=== PATIENT | male | born 1955 | race Caucasian/White ===

== ENCOUNTER 2018-09-22 13:25 | Inpatient (IN) | payer OTHER ==
[2018-09-22 15:40] LABS: BASO # 0.1 10^3/uL (0.0-0.2); BASO % 0.5 % (0.0-1.0); EOS # 0.1 10^3/uL (0.0-0.50); EOS % 1.2 % (0.0-3.0); HEMATOCRIT 48.5 % (42.0-52.0); HEMOGLOBIN 16.5 g/dl (13.5-17.5); IMMATURE GRANULOCYTE % 0.3 % (0-3.0); LYMPH # 2.5 10^3/uL (1.5-4.5); LYMPH % 25.9 % (24.0-44.0); MEAN CORPUSCULAR HEMOGLOBIN 30.2 pg (27.0-33.0); MEAN CORPUSCULAR VOLUME 88.8 fl (80.0-96.0); MONO # 0.9 10^3/uL (0.0-0.8); MONO % 9.3 % (0.0-5.0); NEUTROPHILS # 5.9 10^3/uL (1.8-7.7); NEUTROPHILS % 62.8 % (36.0-66.0); PLATELET COUNT, AUTOMATED 314 10^3/uL (150-450); RED BLOOD COUNT 5.46 10^6/uL (4.30-6.10); RED CELL DISTRIBUTION WIDTH 13.4 % (11.5-14.5); WHITE BLOOD COUNT 9.5 10^3/uL (4.0-10.0)
[2018-09-22] MEDS: MORPHINE 4 MG/ML 1ML VIAL/SYRINGE (J2270) IV ×2 (15:46→18:13)
[2018-09-22 16:00] LABS: ANION GAP 8 MEQ/L (8-16); BLOOD UREA NITROGEN 12 MG/DL (7-18); C REACTIVE PROTEIN QUANTITATIV 0.72 MG/DL (0.00-0.30); CARBON DIOXIDE LEVEL 29 MEQ/L (21-32); CHLORIDE LEVEL 99 MEQ/L (98-107); CREATININE FOR GFR 0.94 MG/DL (0.70-1.30); GLOMERULAR FILTRATION RATE > 60.0 (>49); GLUCOSE, FASTING 92 MG/DL (70-100); POTASSIUM SERUM 4.6 MEQ/L (3.5-5.1); SODIUM LEVEL 136 MEQ/L (136-145)
[2018-09-22 16:03] LABS: LACTIC ACID SEPSIS PROTOCOL 0.8 MMOL/L (0.4-2.0)
[2018-09-22 16:29] LABS: ERYTHROCYTE SEDIMENTATION RATE 3 mm/hr (0-20)
[2018-09-22 20:03] LABS: PROTHROMBIN TIME 13.3 SECONDS (12.1-14.4)
[2018-09-22 20:04] LABS: PARTIAL THROMBOPLASTIN TIME 42.8 SECONDS (25.4-37.6)
[2018-09-22] MEDS: HEPARIN SOD (PORCINE) 5000 UNITS/ML VIAL IV (20:14)
[2018-09-22] MEDS: HEPARIN DRIP 25,000 UNITS in APPROPRIATE DILUENT 1 EA IV (20:16)
[2018-09-22] MEDS: PERCOCET 5MG/325MG TAB PO (23:16)
[2018-09-23 03:26] LABS: PARTIAL THROMBOPLASTIN TIME 149.8 SECONDS (25.4-37.6)
[2018-09-23] MEDS ORDERED: ALBUTEROL 90 MCG/ACT 8GM HFA INHALER INH (03:45)
[2018-09-23] MEDS: PERCOCET 5MG/325MG TAB PO ×5 (04:34→20:50)
[2018-09-23] MEDS: HEPARIN DRIP 25,000 UNITS in APPROPRIATE DILUENT 1 EA IV ×2 (04:41→23:11)
[2018-09-23 04:54] LABS: HEMATOCRIT 45.5 % (42.0-52.0); HEMOGLOBIN 15.3 g/dl (13.5-17.5); MEAN CORPUSCULAR HEMOGLOBIN 30.1 pg (27.0-33.0); MEAN CORPUSCULAR HGB CONC 33.6 g/dl (32.0-36.5); MEAN CORPUSCULAR VOLUME 89.4 fl (80.0-96.0); PLATELET COUNT, AUTOMATED 266 10^3/uL (150-450); RED BLOOD COUNT 5.09 10^6/uL (4.30-6.10); RED CELL DISTRIBUTION WIDTH 13.2 % (11.5-14.5)
[2018-09-23] MEDS ORDERED: HEPARIN 1,000 UNITS/ML 10ML VIAL (FOR RADIOLOGY& DIALYSIS ONLY) As Ordered (10:21)
[2018-09-23] MEDS ORDERED: fentaNYL 100 MCG/2 ML INJECTION (J3010) As Ordered (10:21)
[2018-09-23] MEDS ORDERED: MIDAZOLAM INJ 2 MG/2 ML VIAL (J2250) As Ordered (10:21)
[2018-09-23] MEDS ORDERED: ISOVUE-300 61% 50ML VIAL (Q9967) As Ordered (10:22)
[2018-09-23] MEDS ORDERED: LIDOCAINE 2% MDV 20 ML VIAL As Ordered (10:45)
[2018-09-23] MEDS: NICOTINE 21MG/24HR 1 EA TRANSDERMAL TD (17:55)
[2018-09-23 18:17] LABS: PARTIAL THROMBOPLASTIN TIME 55.7 SECONDS (25.4-37.6)
[2018-09-23] MEDS: HEPARIN SOD (PORCINE) 5000 UNITS/ML VIAL IV (18:53)
[2018-09-24] MEDS: PERCOCET 5MG/325MG TAB PO ×4 (00:59→20:17)
[2018-09-24 01:21] LABS: PARTIAL THROMBOPLASTIN TIME 114.4 SECONDS (25.4-37.6)
[2018-09-24] MEDS ORDERED: MIDAZOLAM INJ 2 MG/2 ML VIAL (J2250) As Ordered (07:08)
[2018-09-24] MEDS ORDERED: fentaNYL 250 MCG/5 ML INJECTION (J3010) As Ordered (07:08)
[2018-09-24] MEDS ORDERED: LIDOCAINE 2% INJ 100 MG/5 ML SDV (FOR ANES.) As Ordered (07:08)
[2018-09-24] MEDS ORDERED: ONDANSETRON 4MG/2ML VIAL (J2405) As Ordered (07:08)
[2018-09-24] MEDS ORDERED: PROPOFOL 200 MG/20 ML VIAL As Ordered (07:08)
[2018-09-24] MEDS ORDERED: LIDOCAINE 1% SDV INJ 30 ML VIAL As Ordered (08:42)
[2018-09-24] MEDS ORDERED: BUPIVACAINE HCL 0.5% 30 ML VIAL As Ordered (08:43)
[2018-09-24 08:45] LABS: PARTIAL THROMBOPLASTIN TIME 71.2 SECONDS (25.4-37.6)
[2018-09-24] MEDS: ceFAZolin 2 GM/D5W 50 ML IV BAG (J0690 PER 500MG) As Ordered (08:48)
[2018-09-24] MEDS ORDERED: HEPARIN SOD (PORCINE) 5000 UNITS/ML VIAL As Ordered ×2 (09:15)
[2018-09-24] MEDS: HEPARIN SOD (PORCINE) 5000 UNITS/ML VIAL As Ordered (09:30)
[2018-09-24] MEDS: THROMBIN SOLN 20,000 UNITS KIT As Ordered (10:01)
[2018-09-24] MEDS: LR 1,000 ML IV (10:45)
[2018-09-24] MEDS ORDERED: ONDANSETRON 4MG/2ML VIAL (J2405) IV (11:15)
[2018-09-24] MEDS ORDERED: fentaNYL 100 MCG/2 ML INJECTION (J3010) IV (11:15)
[2018-09-24] MEDS ORDERED: NORCO, ANEXSIA 5/325MG TABLET (HYDROcodone/ACETAMINOPHEN) PO (11:15)
[2018-09-24 16:32] LABS: PARTIAL THROMBOPLASTIN TIME 148.5 SECONDS (25.4-37.6)
[2018-09-24] MEDS: HEPARIN DRIP 25,000 UNITS in APPROPRIATE DILUENT 1 EA IV (18:17)
[2018-09-24] MEDS: NICOTINE 21MG/24HR 1 EA TRANSDERMAL TD (20:00)
[2018-09-24] MEDS ORDERED: SENNA 8.6 MG TAB (SENOKOT) PO (20:00)
[2018-09-24] MEDS: MOM 30ML SUSPENSION UDC PO (20:00)
[2018-09-24 20:03] LABS: CPK CREATINE PHOSPHOKINASE 48 U/L (39-308); MB/CK RELATIVE INDEX 2.29 (< OR =4); TROPONIN I < 0.02 NG/ML (< 0.10)
[2018-09-24] MEDS: DOCUSATE SODIUM 100 MG CAP PO (20:16)
[2018-09-25 00:32] LABS: INR 1.01; PROTHROMBIN TIME 13.4 SECONDS (12.1-14.4)
[2018-09-25 00:33] LABS: PARTIAL THROMBOPLASTIN TIME 43.5 SECONDS (25.4-37.6)
[2018-09-25] MEDS: HEPARIN SOD (PORCINE) 5000 UNITS/ML VIAL IV (01:07)
[2018-09-25] MEDS: PERCOCET 5MG/325MG TAB PO ×5 (01:18→20:12)
[2018-09-25 01:42] LABS: CPK CREATINE PHOSPHOKINASE 43 U/L (39-308); MB/CK RELATIVE INDEX 2.79 (< OR =4); TROPONIN I < 0.02 NG/ML (< 0.10)
[2018-09-25 06:56] LABS: INR 0.99; PROTHROMBIN TIME 13.2 SECONDS (12.1-14.4)
[2018-09-25 06:57] LABS: PARTIAL THROMBOPLASTIN TIME 80.9 SECONDS (25.4-37.6)
[2018-09-25 07:19] LABS: CK-MB VALUE MASS < 1.0 NG/ML (<3.6); CPK CREATINE PHOSPHOKINASE 50 U/L (39-308); TROPONIN I < 0.02 NG/ML (< 0.10)
[2018-09-25] MEDS: HEPARIN DRIP 25,000 UNITS in APPROPRIATE DILUENT 1 EA IV (07:28)
[2018-09-25] MEDS: NICOTINE 21MG/24HR 1 EA TRANSDERMAL TD (07:51)
[2018-09-25] MEDS: DOCUSATE SODIUM 100 MG CAP PO ×3 (08:07→20:11)
[2018-09-25] MEDS: MOM 30ML SUSPENSION UDC PO (12:47)
[2018-09-25] MEDS: BISACODYL 10 MG SUPP PR (12:48)
[2018-09-25 13:59] LABS: INR 0.98; PROTHROMBIN TIME 13.1 SECONDS (12.1-14.4)
[2018-09-25 14:01] LABS: PARTIAL THROMBOPLASTIN TIME 64.5 SECONDS (25.4-37.6)
[2018-09-26] MEDS: PERCOCET 5MG/325MG TAB PO ×4 (00:20→12:59)
[2018-09-26 05:53] LABS: PARTIAL THROMBOPLASTIN TIME 72.5 SECONDS (25.4-37.6)
[2018-09-26] MEDS: NICOTINE 21MG/24HR 1 EA TRANSDERMAL TD (08:35)
[2018-09-26] MEDS: DOCUSATE SODIUM 100 MG CAP PO (08:37)
== END 2018-09-26 14:45 | disposition home or self-care (01) | DRG 254 ==
LOC: M PCU 09-23 01:57 → M MSPAV 09-24 13:04 → M ED 13:25 → M ED INP 22:05
PROC: 047N3ZZ Dilation of Left Popliteal Artery, Percutaneous Approach (ICD-10-PCS; principal; 2018-09-24 08:39)
PROC: 047L3ZZ Dilation of Left Femoral Artery, Percutaneous Approach (ICD-10-PCS; 2018-09-24 08:39)
PROC: 047J3ZZ Dilation of Left External Iliac Artery, Percutaneous Approach (ICD-10-PCS; 2018-09-24 08:39)
PROC: B41DYZZ Fluoroscopy of Aorta and Bilateral Lower Extremity Arteries using Other Contrast (ICD-10-PCS; 2018-09-24 08:39)
DX: I70.212 Atherosclerosis of native arteries of extremities with intermittent claudication, left leg (principal); F17.210 Nicotine dependence, cigarettes, uncomplicated; I77.1 Stricture of artery

== ENCOUNTER → 2018-12-12 | Outpatient (CLI) | payer OTHER ==
[~2018-12-12] MED LIST: AUGM875T28 PO; LIPI20TA PO; OXYC1TAB23 PO; PLAV1TAB2 PO
[2018-12-12 15:15] LABS: BASO % 0.3 % (0.0-1.0); EOS # 0.1 10^3/uL (0.0-0.50); EOS % 1.1 % (0.0-3.0); HEMOGLOBIN 16.3 g/dl (13.5-17.5); LYMPH # 1.7 10^3/uL (1.5-4.5); LYMPH % 24.2 % (24.0-44.0); MEAN CORPUSCULAR HEMOGLOBIN 30.1 pg (27.0-33.0); MEAN CORPUSCULAR HGB CONC 33.3 g/dl (32.0-36.5); MEAN CORPUSCULAR VOLUME 90.4 fl (80.0-96.0); MONO # 0.6 10^3/uL (0.0-0.8); NEUTROPHILS # 4.5 10^3/uL (1.8-7.7); PLATELET COUNT, AUTOMATED 260 10^3/uL (150-450); RED BLOOD COUNT 5.42 10^6/uL (4.30-6.10)
[2018-12-12 15:31] LABS: BLOOD UREA NITROGEN 12 MG/DL (7-18); CALCIUM LEVEL 8.6 MG/DL (8.8-10.2); CARBON DIOXIDE LEVEL 30 MEQ/L (21-32); CHLORIDE LEVEL 105 MEQ/L (98-107); GLOMERULAR FILTRATION RATE > 60.0 (>49); GLUCOSE, FASTING 94 MG/DL (70-100); POTASSIUM SERUM 4.1 MEQ/L (3.5-5.1); SODIUM LEVEL 140 MEQ/L (136-145)
== END ==
LOC: M LAB 14:41
PROVIDERS: ATTEND Surgery Vascular Surgery
DX: I70.213 Atherosclerosis of native arteries of extremities with intermittent claudication, bilateral legs (principal)

== ENCOUNTER → 2018-12-20 | Outpatient (CLI) | payer OTHER ==
[~2018-12-20] MED LIST changes: +ACETAMINOPHEN TAB 650MG DOSE (2X325MG) PO PRN; +CLOPIDOGREL 75 MG TAB As Ordered ONE; +HEPARIN 1,000 UNITS/ML 10ML VIAL (FOR RADIOLOGY& DIALYSIS ONLY) As Ordered ONE; +ISOVUE-300 61% 50ML VIAL (Q9967) As Ordered ONE; +LIDOCAINE 2% MDV 20 ML VIAL As Ordered ONE; +MIDAZOLAM INJ 2 MG/2 ML VIAL (J2250) As Ordered ONE; +NICOTINE POLACRILEX 2 MG GUM PO ONE; +ONDANSETRON 4MG/2ML VIAL (J2405) As Ordered ONE; +PERC5TAB12 PO; +PERCOCET 5MG/325MG TAB As Ordered ONE; +PERCOCET 5MG/325MG TAB PO ONE; +PROTAMINE SULF INJ 50 MG/5 ML VIAL (J2720) As Ordered ONE; +fentaNYL 100 MCG/2 ML INJECTION (J3010) As Ordered ONE
--- NOTE | 2019-01-18 10:05 | REPIR ---
DATE OF PROCEDURE: 12/20/2018 ATTENDING SURGEON: Dr. Sonya Clark ASSISTANTS: Melissa Wiggins and Bonine Garsia. PREOPERATIVE DIAGNOSIS: Left leg pain. POSTOPERATIVE DIAGNOSIS: Left leg pain. PROCEDURE: Aortogram, iliofemoral angiogram, selective left common femoral artery catheter placement, left external iliac artery angioplasty and stent with a 10 x 20 Wallstent postdilated with an 8 x 4 balloon. Left superficial femoral and popliteal artery angioplasty and stenting with 7 x 120 Meme stent postdilated with a 6 x 200 balloon. INDICATION: The patient is a 63-year-old male, who underwent a left femoral endarterectomy but continues to have significant left lower extremity pain and claudication. The patient will undergo a left lower extremity angiogram with possible angioplasty stent and/or atherectomy. Risks, benefits, alternative treatment options were discussed with the patient. ANESTHESIA: Local sedation with 4 mg of Versed, 20 mcg fentanyl and 10 mL of 2% lidocaine. FLUOROSCOPY TIME: 7.1 minutes. CONTRAST: 25 mL. SEDATION TIME: From 9:03 a.m. to 10:31 a.m. HEPARIN: 7000 units PROTAMINE: 50 mg COMPLICATIONS: None. DRAINS: None. SPECIMENS: None. IMPLANT: Left external iliac artery stent with a 10 x 20 Wallstent postdilated an 8 x 4 balloon, left superficial femoral and popliteal artery stent with a 7 x 20 Meme stent. DESCRIPTION OF PROCEDURE: The patient was taken to the angiography suite, placed supine on the angiography table and then prepped and draped in a standard surgical fashion. The right common femoral artery was cannulated with a micropuncture needle and a sheath eventually placed. The catheter was placed in the aorta and aortogram was performed showing stenosis in the external iliac artery distally above the level of the endarterectomy. The left external iliac artery was then angioplasty and stented with a 10 x 20 Wallstent postdilated 8 x 4 balloon. The angiogram showed stenosis in the superficial femoral and popliteal arteries. This was angioplasty and stented with a 7 x 120 Meme drug-eluting stent and postdilated with a 6 x 200 balloon. A completion angiogram showed resolution of the stenosis with excellent flow distally. A Mynx closure device was used close the arteriotomy in the right common femoral artery with an additional 10 minutes of adjunctive pressure applied for hemostasis. Dressings were then applied. The patient tolerated the procedure well. All instrument, sponge and needle counts were correct at the end the case. There were no complications. Dr. Clark was present for directed the entire case. The patient was transferred to the holding area and subsequently discharged in stable condition. Edited: 01/18/[address] [facility]
== END | disposition home or self-care (01) ==
LOC: M IRPRO 06:18
PROVIDERS: ATTEND Surgery Vascular Surgery
DX: I70.212 Atherosclerosis of native arteries of extremities with intermittent claudication, left leg (principal)
CPT/HCPCS: 37221; 37226; C1760; C1769; C1874; C1876; C1887; C1894; J2250; J2405; J2720; J3010; Q9967

== ENCOUNTER 2018-12-21 15:21 | Emergency (ER) | payer OTHER ==
[~2018-12-21] VITALS: Ht 180.3 cm; Wt 90.9 kg
[~2018-12-21 15:21] MED LIST changes: -ACETAMINOPHEN TAB 650MG DOSE (2X325MG) PO PRN; -CLOPIDOGREL 75 MG TAB As Ordered ONE; -HEPARIN 1,000 UNITS/ML 10ML VIAL (FOR RADIOLOGY& DIALYSIS ONLY) As Ordered ONE; -ISOVUE-300 61% 50ML VIAL (Q9967) As Ordered ONE; -LIDOCAINE 2% MDV 20 ML VIAL As Ordered ONE; -MIDAZOLAM INJ 2 MG/2 ML VIAL (J2250) As Ordered ONE; -NICOTINE POLACRILEX 2 MG GUM PO ONE; -ONDANSETRON 4MG/2ML VIAL (J2405) As Ordered ONE; -PERC5TAB12 PO; -PERCOCET 5MG/325MG TAB As Ordered ONE; -PERCOCET 5MG/325MG TAB PO ONE; -PROTAMINE SULF INJ 50 MG/5 ML VIAL (J2720) As Ordered ONE; -fentaNYL 100 MCG/2 ML INJECTION (J3010) As Ordered ONE
[2018-12-21] MEDS ORDERED: PERCOCET 5MG/325MG TAB PO ONE (17:15)
--- NOTE | 2018-12-21 18:37 | REPVR ---
EXAM: US Duplex Left Lower Extremity Veins, Limited EXAM DATE/TIME: 12/21/2018 6:33 PM CLINICAL HISTORY: 63 years old, male; Pain; Leg, upper; Left; Prior surgery; Surgery date: Post-operative (0-2 days); Surgery type: Lt arterial stent placement yesterday; Additional info: L leg pain/swelling after stent placement yesterday w/ vasc TECHNIQUE: Real-time Duplex ultrasound of the Left Lower Extremity with 2-D chavez scale, color Doppler flow and spectral waveform analysis. Limited exam focused on the left lower extremity veins. COMPARISON: No relevant prior studies available. FINDINGS: Left deep veins: Unremarkable. The common femoral, femoral, proximal profunda femoral and popliteal veins are patent without thrombus. Normal Doppler waveforms. Normal compressibility and/or augmentation response. Left superficial veins: Unremarkable. Saphenofemoral junction is patent without thrombus. Soft tissues: Unremarkable. IMPRESSION: No acute findings. No evidence of deep vein thrombosis. Electronically signed by: Alex Cross On 12/21/2018 18:37:20 PM
[2018-12-21 18:46] VITALS: BP 132/66
[2018-12-21] MEDS ORDERED: PERC5TAB12 PO (18:50)
== END 2018-12-21 19:02 | disposition home or self-care (01) ==
LOC: M ED 15:21
DX: M79.605 Pain in left leg (principal); G89.18 Other acute postprocedural pain; M79.89 Other specified soft tissue disorders; Z95.828 Presence of other vascular implants and grafts; I73.9 Peripheral vascular disease, unspecified; I25.2 Old myocardial infarction; J44.9 Chronic obstructive pulmonary disease, unspecified; F17.200 Nicotine dependence, unspecified, uncomplicated; Z88.5 Allergy status to narcotic agent

== ENCOUNTER → 2019-03-15 | Outpatient (CLI) | payer OTHER ==
[~2019-03-15] MED LIST changes: +BUPIVACAINE HCL 0.5% 10 ML VIAL As Ordered ONE; +HEPARIN 1,000 UNITS/ML 10ML VIAL (FOR RADIOLOGY& DIALYSIS ONLY) As Ordered ONE; +ISOVUE-300 61% 100ML VIAL (Q9967) As Ordered ONE; +LIDOCAINE 2% MDV 20 ML VIAL As Ordered ONE; +MIDAZOLAM INJ 2 MG/2 ML VIAL (J2250) As Ordered ONE; +PERC5TAB12 PO; +PROTAMINE SULF INJ 50 MG/5 ML VIAL (J2720) As Ordered ONE; +diphenhydrAMINE INJ 50MG/ML VIAL (J1200) As Ordered ONE; +fentaNYL 100 MCG/2 ML INJECTION (J3010) As Ordered ONE
--- NOTE | 2019-03-29 10:47 | REPIR ---
DATE OF PROCEDURE: 03/15/2019 PREOPERATIVE DIAGNOSES: Right lower extremity pain and claudication, continued tobacco use. POSTOPERATIVE DIAGNOSES: Right lower extremity pain and claudication, continued tobacco use. PROCEDURE: Right lower extremity angiogram, right external iliac common iliac, superficial femoral and popliteal artery atherectomy with jet stream 2434 catheter. Right external iliac common femoral superficial femoral artery angioplasty with 6 x 207 x 150 mm balloons. Right superficial femoral and popliteal artery angioplasty with 6 x 207 x 40 mm balloons. Right popliteal artery angioplasty and stent with a 7 x 120 Meme drug-eluting stent postdilated with a 6 x 207 x 40 mm balloon. Right superficial femoral artery angioplasty and stent with a 7 x 121 Meme drug-eluting stent postdilated with a 6 x 207 x 40 balloon. MYNX closure of the left common femoral arteriotomy. SURGEON: Dr. Sonya Clark. MARKET RISK ANALYST: Bonnie Garsia and Melissa Wiggins ANESTHESIA: Local with sedation with 7 mg of Versed, 350 mcg of fentanyl, 10 mL of 2% lidocaine mixed with 0.5% Marcaine, Benadryl 10 mg. CONTRAST: 9 mL of Isovue 300. HEPARIN: 7000 units followed by an additional 3000 units bolus. INDICATION: The patient is a 64-year-old male with bilateral lower extremity claudication and severe atherosclerotic arterial occlusive disease as well as continued tobacco use. The patient will undergo a right lower extremity angiogram with possible angioplasty stent and/or atherectomy. Risks, benefits, alternative options were discussed with the patient. DESCRIPTION OF PROCEDURE: The patient was taken to the angiography suite, placed supine on the angiography room table and then prepped and draped in a standard surgical fashion. The left common femoral artery was cannulated and a catheter was placed up and over the bifurcation into the right common femoral artery and an angiogram was performed. This showed severe extensive stenosis along the external iliac artery, common femoral superficial femoral and popliteal arteries. These underwent atherectomy followed by angioplasty and stenting. A completion angiogram showed resolution of the stenosis with excellent flow through the femoral arteries into the tibial arteries and distally. The patient had a 2+ palpable posterior tibial pulse at the completion of the intervention in the right lower extremity. A MYNX closure was then used to close the arteriotomy in the left common femoral artery with an additional 10 minutes of adjunctive pressure applied for hemostasis. Dressings were then applied. The patient tolerated the procedure well. All instrument, sponge and needle counts were correct at the end of the case. There were no complications. Dr. Clark was present for directed the entire case. The patient was transferred to [facility] and subsequent discharged in stable condition.
== END | disposition home or self-care (01) ==
LOC: M IRPRO 08:20
PROVIDERS: ATTEND Surgery Vascular Surgery
DX: I70.211 Atherosclerosis of native arteries of extremities with intermittent claudication, right leg (principal); Z72.0 Tobacco use
CPT/HCPCS: 0238T; 37227; C1724; C1725; C1760; C1769; C1874; C1887; C1894; J1200; J2250; J3010; Q9967

== ENCOUNTER 2019-03-17 12:40 | Emergency (ER) | payer OTHER ==
[~2019-03-17] VITALS: Ht 180.3 cm; Wt 95.5 kg
[~2019-03-17 12:40] MED LIST changes: -BUPIVACAINE HCL 0.5% 10 ML VIAL As Ordered ONE; -HEPARIN 1,000 UNITS/ML 10ML VIAL (FOR RADIOLOGY& DIALYSIS ONLY) As Ordered ONE; -ISOVUE-300 61% 100ML VIAL (Q9967) As Ordered ONE; -LIDOCAINE 2% MDV 20 ML VIAL As Ordered ONE; -MIDAZOLAM INJ 2 MG/2 ML VIAL (J2250) As Ordered ONE; -PROTAMINE SULF INJ 50 MG/5 ML VIAL (J2720) As Ordered ONE; -diphenhydrAMINE INJ 50MG/ML VIAL (J1200) As Ordered ONE; -fentaNYL 100 MCG/2 ML INJECTION (J3010) As Ordered ONE
[2019-03-17 14:40] LABS: BASO % 0.3 % (0.0-1.0); EOS # 0.1 10^3/uL (0.0-0.50); EOS % 0.7 % (0.0-3.0); HEMATOCRIT 48.3 % (42.0-52.0); HEMOGLOBIN 16.4 g/dl (13.5-17.5); LYMPH # 1.9 10^3/uL (1.5-4.5); LYMPH % 19.4 % (24.0-44.0); MEAN CORPUSCULAR HEMOGLOBIN 30.9 pg (27.0-33.0); MONO # 1.2 10^3/uL (0.0-0.8); MONO % 12.4 % (0.0-5.0); NEUTROPHILS # 6.6 10^3/uL (1.8-7.7); NEUTROPHILS % 66.9 % (36.0-66.0); PLATELET COUNT, AUTOMATED 222 10^3/uL (150-450); RED BLOOD COUNT 5.31 10^6/uL (4.30-6.10); WHITE BLOOD COUNT 9.8 10^3/uL (4.0-10.0)
[2019-03-17] MEDS ORDERED: MORPHINE 2 MG/ML 1ML SYRINGE (J2270) IV ONE (14:45)
--- NOTE | 2019-03-17 14:47 | REP ---
Right lower extremity Duplex Doppler venous ultrasound: Real time compression and duplex Doppler interrogation of the right lower extremity deep venous system is performed. The right common femoral, superficial femoral and popliteal veins are fully compressible with transducer pressure and demonstrate normal spontaneous and phasic flow, without evidence of deep venous thrombosis. Impression: No evidence of deep venous thrombosis of the right lower extremity femoral popliteal venous system. Electronically Signed by George Caicedo MD 03/17/2019 02:39 P
[2019-03-17 15:13] LABS: BLOOD UREA NITROGEN 9 MG/DL (7-18); CALCIUM LEVEL 8.9 MG/DL (8.8-10.2); CARBON DIOXIDE LEVEL 32 MEQ/L (21-32); CHLORIDE LEVEL 102 MEQ/L (98-107); CREATININE FOR GFR 0.78 MG/DL (0.70-1.30); GLOMERULAR FILTRATION RATE > 60.0 (>49); GLUCOSE, FASTING 64 MG/DL (70-100); POTASSIUM SERUM 4.1 MEQ/L (3.5-5.1); SODIUM LEVEL 138 MEQ/L (136-145)
[2019-03-17 15:21] VITALS: BP 146/78
--- NOTE | 2019-03-17 15:30 | REP ---
Duplex extremity venous ultrasound: Left lower extremity. History: Peripheral vascular disease. Recent surgery. Leg swelling. Findings: The deep veins are anechoic and fully compressible from the groin to the popliteal fossa in the left lower extremity. Color flow imaging is homogeneous. Spectral Doppler interrogation demonstrates intact respiratory variation in flow and normal manual augmentation of flow. There is no evidence of deep vein thrombosis. There are normal appearing left inguinal lymph nodes, the largest of which measures 1.6 x 1.4 x 0.7 cm. Impression: Negative left lower extremity duplex venous ultrasound. No evidence of deep vein thrombosis. Electronically Signed by Mike Minaya MD 03/17/2019 03:21 P
[2019-03-17 15:41] LABS: INR 1.05; PROTHROMBIN TIME 13.8 SECONDS (12.1-14.4)
[2019-03-17 15:42] LABS: PARTIAL THROMBOPLASTIN TIME 39.4 SECONDS (25.4-37.6)
== END 2019-03-17 16:47 | disposition home or self-care (01) ==
LOC: M ED 12:40
DX: M25.551 Pain in right hip (principal); I25.2 Old myocardial infarction; E78.5 Hyperlipidemia, unspecified; I73.9 Peripheral vascular disease, unspecified; G47.30 Sleep apnea, unspecified; J44.9 Chronic obstructive pulmonary disease, unspecified; Z72.0 Tobacco use; Z95.820 Peripheral vascular angioplasty status with implants and grafts; Z98.62 Peripheral vascular angioplasty status; Z88.5 Allergy status to narcotic agent
CPT/HCPCS: 80048; 85025; 85610; 85730; 93971; 96374; 99284; J2270